=== PATIENT | female | born 1990 | race Caucasian/White ===

== ENCOUNTER → 2022-01-13 17:16 | Outpatient (CLI) | payer OTHER, SELFPAY ==
--- NOTE | 2022-01-13 17:21 | DI.MRI.S_ITS ---
PROCEDURE: MR HAND LT WO CON INDICATIONS: PAIN LEFT HAND TECHNIQUE: Noncontrast coronal T1 spin echo and T2 fast spin echo with fat saturation, axial proton density fast spin echo and T2 fast spin echo with fat saturation, sagittal T1 spin echo and STIR through the hand and fingers. COMPARISON: [facility], CR, XR HAND 3+ VIEWS LEFT, 01/03/2022, 13:17. FINDINGS: Image quality: Excellent. Bones: The bones are normally aligned, without marrow contusions or fractures. No intra-osseous lesions. Soft tissues: Focal subcutaneous soft tissue edema is seen at the interspace between the 1st and 2nd metacarpals dorsally. Visualized muscles demonstrate normal bulk and internal signal. No intramuscular masses identified. No ganglion cysts. IMPRESSION: 1. Focal nonspecific subcutaneous soft tissue edema at the interspace between the 1st and 2nd metacarpals may represent soft tissue contusion. 2. No acute trabecular bone injury. No significant ligament or tendon injury is seen. Dictated by: Manohar Zazueta M.D. on 01/14/2022 at 9:56 Approved by: Manohar Zazueta M.D. on 01/14/2022 at 10:05
== END ==
PROVIDERS: Referring Provider Physician Assistant; Visit Provider Physician Assistant
DX: M79.642 Pain in left hand (principal); R60.0 Localized edema
CPT/HCPCS: 73218